=== PATIENT | male | born 1990 | race Caucasian/White ===

== ENCOUNTER → 2017-08-07 | Outpatient (CLI) | payer OTHER ==
--- NOTE | 2017-08-08 06:22 | PAP/PSG TECHNICIAN REPORT ---
[facility] [employer] Polysomnogram Report Study name: None Report date: 08/08/2017 Study date: 08/07/2017 Referring Physician: Dr. David Daniels Name: SOURAV DUBOIS Interpreting Physician: Mario Emery M.D. Date of : 1990 Rental Car Deliverer: ANGELA Davidson. Sex: Male Age: 26 StudyType: PSG Weight: 155 lbs Height: 26 years, Height 6' 1" BMI: 20.45 Medications: None Patient History 26 yr. old male here for a diagnostic sleep study in room 6. Patient complains of witness apneas and EDS. Patients [place] Sleepiness Scale Score is 12/24. Parameters Monitored NPSG: E1-M2, E2-M1, Fp1-M2, Fp2-M1, F3-M2, F4-M2, F4-M1, C3-M2, C4-M2, C4-M1, O1-M2, O2-M2, O2-M1, T3-M2, T4-M1, P3-M2, P4-M1, CHIN1, CHIN2, HR, EKG, Legs, PFLOW, SNOR, FLOW, CFLOW, Tidal Volume, THOR, ABDO, SpO2, PLTH, CPRESS, ETCO2 Wave, ETCO2, pH Sleep Architecture Sleep Stages Time at Lights Off 8:16:38 PM STAGES Time (min.) TST (%) Time at Lights On 5:41:08 AM Wake 104.0 -- Total Recording Time (TRT) 538.00 min. N1 19.5 4 Total Sleep Period (TSP) 452.5 min. N2 281.0 65 Total Sleep Time (TST) 434.0min. N3 33.0 8 Awake Time 104.0 min. REM 100.5 23 Wake after Sleep Onset 44.5 min. Sleep Efficiency (SE) 81 % Sleep Onset Latency (THADDEUS) 86.0 min. Number of Stage 1 Shifts None Awakenings 11 Stage Changes 69 Number of REM periods 9 REM 100.5 23 REM Latency 45.0 min. NREM 333.5 77 Body Position Analysis Supine Right Left Side Prone Vertical Total Sleep Time (min.) 139.6 253.8 122.2 376.00 0.0 0.7 Total Sleep Time (%) 13% 58% 28% 87 0% N/A% Total Sleep Time REM (min.) 21.0 58.5 21.0 None 0.0 0.0 Total Sleep Time NREM (min.) 37.0 195.3 101.2 None 0.0 0.0 Intermittent Wake (min.) 81.6 11.8 9.8 None 0.0 0.7 Total Sleep Period (%) 14% None None None None None Arousals Myoclonus (PLM) * Events Count Index Events Count Index Spontaneous 4 1 Events Awake (PLMW) 45 26.0 Respiratory 0 0.0 Events Asleep w/ Arousal (PLMA) 12 1.7 PLM 12 2 Events Asleep w/o Arousal (PLMS) 42 5.8 Snoring 2 0 Total Asleep 54 7.5 Total 18 2 Total 99 11 Respiratory Analysis * CA OA MA CH H RERA Total Count 1 0 0 0 2 0 3 Index 0.1 0.0 0.0 0 0.3 0 0.4 Mean Duration 12.3 0.0 0.0 0.00 30.7 0.0 24.6 Longest Duration 12.3 0.0 0.0 0.00 0.0 0.0 41.7 Respiratory Event Summary Total Supine ~Supine Right Left Prone REM NREM Apneas Count 1 0 1 1 0 N/A 1 0 Index 0.1 0 0 0.2 0.0 N/A 1 0 Hypopneas (4% Desat) Count 2 1 1 1 0 N/A 2 0 Index 0.3 1.0 0 0.2 0.0 N/A 1.2 0.0 Apneas & All Hypopneas Count 3 1 2 2 0 N/A 3 0 Index 0.4 1 0 0 0 N/A 1.8 0.0 Respiratory Events (County Adviser+All Hyp+RERA) Count 3 1 2 2 0 N/A 3 0 Index 0.4 1 0 0.5 0.0 N/A 1.8 0.0 Respiratory Related Arousal Count 0 1 0 0 0 N/A 0 0 Index 0.0 0 0 0 0 N/A 0 0 Snoring Analysis Supine Right Left Prone REM NREM Total Snore duration 0.8 min Snores count 5 11 3 N/A 10 9 19 Snore mean duration 2.5 Sec Snores index 5 3 1 N/A 6.0 1.6 2.6 TST with snoring (%) 0.2% Desaturation Event Summary: Minimum %SpO2 Event Count Mean/Min/Max Duration(sec.) Desaturation Index % Time In Bed > 90 7 32.4 / 4.7 / 56.5 0.8 100.0 86 - 90 0 N/A 0.0 0.0 81 - 85 0 N/A 0.0 0.0 76 - 80 0 N/A 0.0 0.0 71 - 75 0 N/A 0.0 0.0 66 - 70 0 N/A 0.0 0.0 61 - 65 0 N/A 0.0 0.0 56 - 60 0 N/A 0.0 0.0 51 - 55 0 N/A 0.0 0.0 < 50 0 N/A 0.0 0.0 Total REM NREM Awake <50% 0.0 min. 0.0 min. 0.0 min. 0.0 min. 51 - 60% 0.0 min. 0.0 min. 0.0 min. 0.0 min. 61 - 70% 0.0 min. 0.0 min. 0.0 min. 0.0 min. 71 - 80% 0.0 min. 0.0 min. 0.0 min. 0.0 min. 81 - 90% 0.0 min. 0.0 min. 0.0 min. 0.0 min. 91 - 100% 536.3 min. 100.5 min. 333.5 min. 102.3 min. Average 95 96 95 95 Minimum SpO2 91 92 91 92 Desaturation Event Index 0.8 2.4 0.4 0.6 # Desat. Events below 89% N/A N/A N/A N/A Time(%) with Saturation below 89% 0.0 0.0 0.0 0.0 Time(min.) with Saturation below 89% 0.0 0.0 0.0 0.0 Time (mins) REM (mins) NREM (mins) % of TST SpO2 Below 90% N/A N/A NN/A 0.0 SpO2 Below 88% 0 0 0 0 Heart Rate Analysis Min (bpm) Max (bpm) Average (bpm) Awake 48 96 61 NREM 44 100 59 REM 52 89 67 Overall 44 100 61 Supplemental O2 Values Minimum O2 level: None Value Start Time End Time R[employer] Car [employer] Comments Mr. Dubois slept in the right, left, and supine positions. A cardiac arrhythmia noted. No PLMs noted. No bruxism noted. Abnormal EEG was noted, see print out. Snoring was noted and scored as a 1 on a scale of 0 through 5. (0=no snoring, 5=snoring loud enough to be heard through a closed door or down the [address] way) Mr. Dubois did not wake to use the restroom during the night. Mr. Dubois stated, that was a bad night, but lately that's how every night is. The final report will be interpreted and signed by a sleep physician. The completed physician report will then be placed in the patient medical record. Therapy (cm H2O) 0 TIB (min.) 538.0 TST (min.) 434.0 Sleep Onset (min.) 86.0 REM Onset From Sleep (min.) 45.0 Sleep Efficiency % 81 Wakefulness (%) 18 Wakefulness (min.) 104.0 NREM 1 (%) 4 NREM 1 (min.) 19.5 NREM 2 (%) 65 NREM 2 (min.) 281.0 NREM 3 (%) 8 NREM 3 (min.) 33.0 REM (%) 23 REM (min.) 100.5 # Arousals 18 Arousal Index 2 # Snore 19 Snore Index 2.6 AHI 0.4 AHI Supine 1 AHI Non-Supine 0 NREM AHI 0.0 REM AHI 1.8 RDI 0.4 # Obstructive Apnea 0 # Central Apnea 1 # Mixed Apnea 0 # Hypopneas 2 RERAs 0 Total Respiratory Events 4 Time Below SpO2 89% (min.) 0.0 Mean NREM SpO2 (%) 95 Mean REM SpO2 (%) 96 Mean Sleep SpO2 (%) 95 Min NREM SpO2 (%) 91 Min REM SpO2 (%) 92 Position Supine (min.) 139.6 Position Non-supine (min.) 376.0 LM Index Sleep 7.5 LM Index NREM 5.9 LM Index REM 12.5 Mean Heart Rate (bpm) 61 Min Heart Rate (bpm) 44
--- NOTE | 2017-08-13 13:54 | POLYSOMNOGRAPH REPORT ---
CLINICAL DATA: A 26-year-old male with BMI of 20.[address] Daniels for a sleep study with symptoms of witnessed apnea and excessive daytime sleepiness. His [place] sleepiness score is 12/24. SLEEP ARCHITECTURE: Total sleep period was 452.5 minutes. Total sleep time was 434 minutes divided between 332.5 minutes of non-REM sleep and 100.5 minutes of REM sleep. Sleep onset latency was delayed at 86 minutes. REM latency was 45 minutes. Sleep efficiency was 81%. Wake after sleep onset was 44.5 minutes. Sleep consisted of stage N1 4%, N2 65%, N3 8%, and REM 23%. AROUSAL DATA: Eighteen arousals were recorded for an index of 2 per hour. PERIODIC LIMB MOVEMENTS DATA: Fifty four limb movements during sleep were noted for an index of 7.5 per hour with arousal index of 1.7 per hour. RESPIRATORY DATA: There was no evidence of clinically significant sleep apnea. The AHI was 0.4. There was 1 central apneic episode, 12.3 seconds in duration. There were 2 hypopneic episodes. The mean duration of hypopnea was 30.7 seconds. OXIMETRY DATA: No hypoxemia was seen. Oxygen setphanie was 91% during non-REM sleep. The mean saturation was 95%. ELECTROCARDIOGRAM: Heart ranged from 44-100 beats per minute. Occasional PACs were noted. MATHEMATICIAN RESEARCH'S COMMENTS: The patient slept in the right, left, and supine positions. Snoring was mild, rated 1 on a scale of 1 through 5. There was 1 episode of abnormal appearing spike wave seen at 3:45 a.m., lasting for several seconds, possibly indicating subclinical seizure activity. MATHEMATICIAN RESEARCH'S COMMENTS: The patient stated that was a bad night but that is how every night is. IMPRESSION: 1. No evidence of clinically significant sleep apnea/hypopnea, nocturnal hypoxemia or abnormal limb movements during sleep. 2. Occasional premature atrial contractions. 3. One episode of usual appearing spiked activity on electroencephalogram at 3:45 a.m., possibly subclinical seizure activity. RECOMMENDATIONS: The patient should continue to practice good sleep hygiene. Evaluation by neurology for possible subclinical seizure disorder could be considered. [facility]
== END | disposition home or self-care (01) ==
LOC: C.NEUR 20:00
PROVIDERS: ATTEND Internal Medicine
DX: R06.81 Apnea, not elsewhere classified (principal); I49.1 Atrial premature depolarization; R94.01 Abnormal electroencephalogram [EEG]